=== PATIENT | female | born 1970 | race Caucasian/White ===

== ENCOUNTER 2022-03-31 12:43 | Emergency (ER) | payer MEDICAID, SELFPAY ==
[2022-03-31 13:05] VITALS: BP 129/79; PULSE 80; RESP 16; TEMP 36.8; O2SAT 99; BMI 26.1
--- NOTE | 2022-03-31 13:13 | ED.ANIMALBIT ---
HPI - Animal Bite General Time Seen by Provider: 13:13 Date Seen: 03/31/22 Chief Complaint: Animal Bite Stated Complaint: Dog bite on RT hand and hurt LT ankle Time Seen by Provider: 03/31/22 13:12 Source: patient, RN notes reviewed and old records reviewed Mode of arrival: ambulatory Limitations: no limitations History of Present Illness HPI narrative: Patient is a very pleasant 52-year-old female with a history of depression, alcohol abuse and anxiety who comes to the emergency room for evaluation of left ankle injury and dog bite. Patient notes that she was trying to pull her dogs apart and 1 turned around and bit her on the right hand. Is also bit on the leg but it did not break her skin. Unfortunately, when she was attempting to come here she fell down the stairs injuring her left ankle. She has pain on the lateral aspect but she has been able to walk. She notes that she is able to move her hand. No numbness or tingling of the fingertips. Her dogs are her own and they are vaccinated. MD complaint: animal bite and other (Left ankle injury) Onset (ago): minute(s) Animal: dog Description of animal: household pet Mechanism: bite Related Data Patient tetanus UTD: No Home Medications Medication Instructions Recorded Confirmed escitalopram oxalate 20 mg tablet 20 mg PO QDAY 12/25/21 03/31/22 hydrochlorothiazide 25 mg tablet 25 mg PO QDAY 12/25/21 03/31/22 lorazepam 0.5 mg tablet 0.5 mg PO Q6H PRN 12/25/21 03/31/22 metoprolol succinate 25 mg 75 mg PO QDAY 12/25/21 03/31/22 tablet,extended release 24 hr triamcinolone acetonide 0.1 % 1 applic topical BID 12/25/21 03/31/22 topical cream trazodone 50 mg tablet 50 mg PO QDAY PRN 03/29/22 03/31/22 Previous Rx's Medication Instructions Recorded losartan 50 mg tablet 50 mg PO QDAY #60 tabs 03/29/22 Allergies Allergy/AdvReac Type Severity Reaction Status Date / Time Sulfa (Sulfonamide Allergy Severe Hives Verified 03/31/22 13:04 Antibiotics) Review of Systems Narrative: Patient notes no recent cough cold congestion. She denies nausea vomiting. She denies any numbness or tingling. PFSH PFS Medical History Depression Family History Father Alcohol abuse Hyperlipidemia High blood pressure Mother Alcohol abuse Aortic aneurysm High blood pressure Social History Smoking Status: Former smoker Do you use any of these nicotine containing products: None Second hand tobacco smoke exposure: No How often do you have a drink containing alcohol: never How often do you have six or more drinks on one occasion: Never AUDIT-C Alcohol total score: 0 Non-prescribed substance use: denies use Little interest or pleasure in doing things: nearly every day Feeling down, depressed, or hopeless: nearly every day Exam Narrative: Exam Narrative: Patient is noted to be alert and oriented. No respiratory distress. Heart with regular rate and rhythm. Lungs are clear. Examination of the right hand shows ecchymosis on the dorsal surface. She has a 1.75 cm laceration compromising the epidermis dermis partially compromising subcutaneous tissue at the dorsal lateral hand approximately just distal to the carpal bones. There are no underlying structures visualized there are no foreign bodies. Medial to this area there are a few superficial lacerations measuring less than 4 mm. There is ecchymosis starting to evolve on the proximal aspect of the dorsum of the hand. There is no active bleeding. Patient has sensation and motor distally intact. Examination of the right leg shows a lemon sized area of ecchymosis with obvious bite jung that did not compromise the skin at the upper aspect of the lower leg finally left ankle shows tenderness over the lateral malleolus as well as edema. No ecchymosis at this time. No pain with palpation over the medial ligaments or the foot itself including navicular or base of the 5th metatarsal. Const: Vital Signs, click to edit/add: Vital Signs - 24 hr 03/31/22 13:05 Temperature 98.2 F Pulse Rate [Pulse Oximeter] 80 Respiratory Rate 16 Blood Pressure [Ri ght Upper Arm] 129/79 Pulse Oximetry 99 Oxygen Delivery Me thod Room Air Documenting provider has reviewed patient's vital signs: yes Common normals: no apparent distress, oriented x3 and no limitations General appearance: cooperative, comfortable and well kempt HENMT: Common normals: head/scalp atraumatic Head and scalp: atraumatic Eye: Common normals: PERRL General eye: normal appearance of both eyes Pupil: PERRL Neck & C-Spine: Common normals: full ROM Resp: Common normals: normal respiratory effort and clear to auscultation bilaterally Auscultation: clear to auscultation bilaterally Cardio: Common normals: regular rate and regular rhythm Rate: regular rate Rhythm: regular rhythm Neuro: Common normals: oriented x3 Psych: Appearance: well kempt Course Reevaluation(s) Reevaluation #1: Patient noted to have vasovagal episode with hypotension 80 systolic blood pressure while being irrigated. Placed in Trendelenburg and has improvement of her blood pressures. She denies recent alcohol use, reason for dehydration. She does state that irrigation was uncomfortable. We will place let on the wound at this time. Vital Signs Vital signs: Initial Vital Signs Temperature 98.2 F 03/31/22 13:05 Temperature Source Temporal Artery Scan 03/31/22 13:05 Pulse Rate 80 03/31/22 13:05 Respiratory Rate 16 03/31/22 13:05 Blood Pressure 129/79 03/31/22 13:05 Blood Pressure Mean 95 03/31/22 13:05 Blood Pressure Position Sitting 03/31/22 13:05 Pulse Oximetry 99 03/31/22 13:05 Oxygen Delivery Method 03/31/22 13:05 Vital Signs Temperature 98.2 F 03/31/22 13:05 Pulse Rate 80 03/31/22 13:05 Respiratory Rate 16 03/31/22 13:05 Blood Pressure 129/79 03/31/22 13:05 Pulse Oximetry 99 03/31/22 13:05 Oxygen Delivery Method 03/31/22 13:05 Temperature 98.2 F 03/31/22 13:05 Pulse Rate 80 03/31/22 13:05 Respiratory Rate 16 03/31/22 13:05 Blood Pressure 129/79 03/31/22 13:05 Pulse Oximetry 99 03/31/22 13:05 Oxygen Delivery Method 03/31/22 13:05 MDM - Animal Bite MDM Narrative Medical decision making narrative: 1. Dog bite-patient had 3 sutures placed after irrigation of the wound and exploration. Would recommend removal of the sutures in 10 days time. Have provided a prescription for Keflex 500 mg p.o. t.i.d. x7 days to be used in the event that patient notice any redness or drainage. If she is using antibiotic would like her to follow up with her primary MD at the clinic for recheck. If she has sudden worsening symptoms with fever, redness extending up her arm or vomiting would have her return to the emergency room for further evaluation. Patient's tetanus was not up-to-date and thus she was given Adacel today. Recommend ibuprofen as needed for discomfort. 2. Left ankle injury-patient had tiny avulsion fracture. She is able to bear weight and thus we did put her in a cam walker. She is to follow-up with orthopedics for recheck in the next week. Again ibuprofen may be utilized for discomfort. Ice to area of discomfort. 3. Vasovagal reaction-during irrigation patient did have a is a vagal reaction with blood pressures dropping to the 80s. Remained alert and oriented without chest pain. She denied any reason to be dehydrated including alcohol use. She rebounded nicely with a normal blood pressure. After let was applied and anesthesia was achieved, irrigation was again resumed. 3. Disposition-patient is discharged home. [place] police were available to talk to patient. Fortunately this is her dog well-known and it is vaccinated. Medical Records Attestation: I reviewed the patient's medical records. Imaging Data Ankle x-ray: Attestation: I have reviewed the pertinent imaging results. My impression: No obvious fracture. Questionable tiny avulsion. Radiologist's impression: Tiny avulsion identified along the medial aspect of the lateral malleolus possibly indicating a tiny avulsion fracture. Soft tissue swelling overlying the lateral malleolus. Tibiotalar articulation is unremarkable. Discharge Plan Discharge Clinical Impression: Tetanus toxoid inoculation, Dog bite, Ankle injury Patient Disposition: Home, Self-Care Condition: Improved Additional Instructions: 1. Left ankle injury-there is a tiny little avulsion fracture off the ankle indicating a ligamental injury. We will place you in a cam walker for comfort. I would have you follow-up with orthopedics as you may be a candidate for physical therapy. The phone number for follow-up with orthopedics is [phone]. 2. Dog bite-sutures are to be removed in 10 days at your clinic. Monitor for signs and symptoms of infection and should you start noticing any redness or drainage that looks like pus start antibiotic immediately then follow-up at the clinic at your earliest convenience. If however you have redness going up your arm, fever, vomiting return to the emergency room. You may wash hands and shower but do not soak hands such as doing dishes or taking a bath. 3. Ice to areas of discomfort. Ibuprofen as needed for pain Prescriptions: No Action escitalopram oxalate 20 mg tablet 20 mg PO QDAY hydrochlorothiazide 25 mg tablet 25 mg PO QDAY lorazepam 0.5 mg tablet 0.5 mg PO Q6H PRN metoprolol succinate 25 mg tablet extended release 24 hr 75 mg PO QDAY triamcinolone acetonide 0.1 % cream 1 applic topical BID trazodone 50 mg tablet 50 mg PO QDAY PRN losartan 50 mg tablet 50 mg PO QDAY Qty: 60 0RF Follow Up/Referrals: Delfina V[employer] [Primary Care Provider] - Stand Alone Forms: [facility] Info Instructions Procedures Laceration Laceration 1: Pre procedure diagnosis: Hand laceration Post procedure diagnosis: Laceration repair Site: hand Size (cm): 1.75 Description: irregular Depth: simple, single layer Local Anesthetic: other anesthetic (Let) Pre-repair: wound explored, irrigated extensively and deep structures intact Skin layer closed with: nylon Size (cm): 5-0 Number of sutures: 3 Technique: simple, interrupted Conclusion: patient tolerated procedure
--- NOTE | 2022-03-31 13:18 | CRLHL7_ITS ---
For Patients: As a result of the Cures Act, medical imaging exams and procedure reports are released immediately into your electronic medical record. You may view this report before your referring provider. If you have questions, please contact your health care provider. INDICATION: Inversion injury left ankle. COMPARISON: None. TECHNIQUE: Three view study left ankle. FINDINGS: Tiny avulsion identified along the medial aspect of the lateral malleolus possibly indicating a tiny avulsion fracture. Soft tissue swelling overlying the lateral malleolus. Tibiotalar articulation is unremarkable. Dictated by Aftab Portillo MD @ 03/31/2022 2:29:52 PM (Electronically Signed)
--- NOTE | 2022-03-31 13:30 | ED.NURSE ---
[facility] contacted re: dog bite.
--- OUTSIDE RECORDS SUMMARY | 2022-03-31 13:30 | XMS_ITS | Encounter Summary ---
:1970 Author Organization [facility] Address [address] [place] [address] Care Team Providers Name Role Phone None Reported, Pcp Primary Care Provider Unavailable Reason for Visit Reason Comments Alcohol Problem Pt presents with suspected a lcohol intoxication. Daughter states pt binge drinks for a week or s o at a time and then goes through withdrawals. Pt denies havin g seizures when she withdrawals. Would like to go to detox. Denies suicidal/homicidal ideations. Encounter Details Date Type Department Care Team Description 09/04/[address] [facility] Anny Broussard D.O. [address] [place] [address] Abuse Alcohol (Primary System [place] Anny Zhang M.D. [address] [place] [address] Dx) Emergency Department [address] [place] [address] Social History Tobacco Use Types Packs/Day Years Used Date Smoking Tobacco: Former Smokeless Tobacco: Never Alcohol Use Standard Drinks/Week Comments Yes 0 (1 standard drink = 0.6 oz pure alcoho l) Binge drinking, 375ml per day Alcohol Habits Answer Date Recorded How often do you have a drink containing Not asked alcohol? How many drinks containing alcohol do you Not asked have on a typical day when you are drinking? How often do you have six or more drinks Not asked on one occasion? Comment: Binge drinking, 375ml per day 09/04/2021 Sex Assigned at Date Recorded Not on file documented as of this encounter Last Filed Vital Signs Vital Sign Reading Time Taken Comments Blood Pressure 133/87 09/04/2021 6:00 PM ELECTRON BEAM PHOTO MASK TECHNICIAN Pulse 100 09/04/2021 7:00 PM ELECTRON BEAM PHOTO MASK TECHNICIAN Temperature 36.9 ??C (98.4 ??F) 09/04/2021 4:19 PM ELECTRON BEAM PHOTO MASK TECHNICIAN Respiratory Rate 19 09/04/2021 7:00 PM ELECTRON BEAM PHOTO MASK TECHNICIAN Oxygen Saturation 96% 09/04/2021 7:00 PM ELECTRON BEAM PHOTO MASK TECHNICIAN Inhaled Oxygen Concentration - - Weight 70.3 kg (155 lb) 09/04/2021 4:18 PM ELECTRON BEAM PHOTO MASK TECHNICIAN Height - - Body Mass Index - - documented in this encounter Discharge Instructions Discharge InstructionsAnny Zhang M.D. - 09/04/2021 7:15 PM ELECTRON BEAM PHOTO MASK TECHNICIAN Please go directly to detox TRON BEAM PHOTO MASK TECHNICIAN AttachmentsThe following attachments cannot be sent through Care Everywhere. Alcohol Abuse and Dependence Information Adult (Belarusian)documented in this encounter Medications at Time of Discharge Medication Sig Dispensed Refills Start Date End Date hydroCHLOROthiazide Take 50 mg by 0 12/22/2020 (HYDRODIURIL) 50 mg tablet mouth. LORazepam (ATIVAN) 0.5 mg Take 0.5 mg by 0 2019 tablet mouth. losartan (COZAAR) 100 mg Take 100 mg by 0 021 tablet mouth. metoprolol succinate Take 75 mg by 0 12/22/2020 (TOPROL-XL) 25 mg 24 hr tablet mouth. potassium chloride (KLOR-CON) Take 20 mEq by 0 20 mEq packet mouth. triamcinolone (KENALOG) 0.1 % Apply small dab 0 0 12/22/2020 cream behind ear and other areas of rash twice daily as needed documented as of this encounter Consult Notes Addis Cowan L.I.C.S.W. - 09/04/2021 7:20 PM CSTAssociated Order(s): IP CONSULT TO CARE MANAGEMENT Progress Note - Care Coordination SUBJECTIVE Patient is a 51 year old woman who presented to the [facility] emergency department earlier today with suspected alcohol intoxication. Management Internship was consulted by Dr. Broussard to assistwith a referral to a detox center. OBJECTIVE Past Medical History: Diagnosis Date ??? Anxiety Generalized Disorder ??? Depressive Disorder Allergies Allergen Reactions ??? Sulfa (Sulfonamide Antibiotics) Hives ASSESSMENT / PLAN ASSESSMENT Management Internship had a brief interaction with the patient to explain the process of a detox referral and she was welcoming and appreciative of this support. INTERVENTIONS 1. Referral phoned/faxed to the [facility] in [place] for review. The patient was later accepted there. That agency will provide transportation to [place] today. PLAN 1. Patient will transfer to the [facility] this evening. Najma Abel 09/04/21 TRON BEAM PHOTO MASK TECHNICIAN documented in this encounter ED Notes Anny Broussard D.O. - 09/04/2021 4:29 PM CST SUBJECTIVE: CHIEF COMPLAINT/REASON FOR VISIT: Alcohol Problem (Pt presents with suspected alcohol intoxication. Daughter states pt binge drinks for a week or so at a time and then goes through withdrawals. Pt denies having seizures when she withdrawals. Would like to go to detox. Denies suicidal/homicidal ideations. ) HISTORY OF PRESENT ILLNESS: 51 y.o. female who presents to the ED for evaluation of alcohol abuse and need for detox. Patient admits she has been a longstanding drinker, typically binge drinks in that showed drink a pt of vodka aday for about a week and then go several weeks without drinking. Family states she is at the point where she know she needs detox. Last stent of sobriety was after a period of detoxication May of 2021. Patient states her last drink was around 0440 this morning. Does not feel like she is in withdrawal. Knows the symptoms of this as she has had them many times in the past and has actually sufferedfrom alcohol withdrawal seizures previously. Denies any other physical complaints. REVIEW OF SYSTEMS: Constitutional: Negative for chills and fever. HENT: Negative for congestion and rhinorrhea. Respiratory: Negative for cough and shortness of breath. Cardiovascular: Negative for chest pain. Gastrointestinal: Negative for abdominal pain, nausea and vomiting. Musculoskeletal: Negative for extremity pain. Neurological: Negative for tingling, weakness and numbness. Psychiatric/Behavioral: Positive for substance abuse. All other systems reviewed and are negative. ALLERGIES/MEDICATIONS: Reviewed in medical record PAST MEDICAL/FAMILY/SOCIAL HISTORY: Medical History: Past Medical History: Diagnosis Date ??? Anxiety Generalized Disorder ??? Depressive Disorder Alcoholism Surgical History: Denies Family History: Reviewed in chart Social History: Social History Socioeconomic History ??? Marital status: Single Tobacco Use ??? Smoking status: Former Smoker ??? Smokeless tobacco: Never Used Vaping Use ??? Vaping Use: never used Substance and Sexual Activity ??? Alcohol use: Yes Comment: Binge drinking, 375ml per day ??? Drug use: Never ??? Sexual activity: Defer Social History Narrative Here with Daughter Social History Substance and Sexual Activity Alcohol Use Yes Comment: Binge drinking, 375ml per day Social History Substance and Sexual Activity Drug Use Never OBJECTIVE: INITIAL VITAL SIGNS: Initial Vitals Temperature Pulse Rate Heart Rate Resp Rate Blood Pressure SpO2 09/04/21 1619 09/04/21 1619 09/04/21 1625 09/04/21 1619 09/04/21 1615 09/04/21 1619 36.9 ??C (!) 118 101 18 (!) 169/111 96 % Pain Score 09/04/21 1703 0 - No pain PHYSICAL EXAMINATION: Constitutional: Nursing note and vitals reviewed. She is cooperative. No distress. HENT: Head: Normocephalic and atraumatic. Nose: Nose normal. Mouth/Throat: Oropharynx is clear and moist. Mucous membranes are moist. Eyes: EOM are normal. Pupils are equal, round, and reactive to light. Cardiovascular: Regular rhythm and normal heart sounds. Tachycardia (in 110s) present. Pulses are palpable. Capillary refill: takes less than 3 seconds, Edema: no edema noted Pulmonary/Chest: Effort normal and breath sounds normal. No respiratory distress. Abdominal: Soft. exhibits no distension. There is no abdominal tenderness. There is no rebound and no guarding. Musculoskeletal: General: No deformity. Normal range of motion. Cervical back: Normal range of motion. Neurological: Alert and oriented to person, place, and time. No tremor or tongue fasciculations Skin: Skin is warm, dry and normal color. Psychiatric: She has a normal mood and affect. Speech pattern is normal and behavior is normal. Tearful. She expresses no homicidal and no suicidal ideation. @SCORING[employer]@ ED COURSE: Final Diagnoses: as of 09/04/211810 Abuse Alcohol INTERVENTIONS: Medications NaCl 0.9 % bolus 1,000 mL (1,000 mL intravenous New Bag 09/04/21 173) LABS: Labs Reviewed CBC WITH DIFFERENTIAL, B - Abnormal Result Value Hemoglobin 12.9 Hematocrit 37.3 Erythrocytes 3.88 (*) MCV 96.1 RBC Distrib Width 14.6 Platelet Count 203 Leukocytes 3.5 Neutrophils 1.86 Lymphocytes 1.17 Monocytes 0.36 Eosinophils 0.04 Basophils 0.04 BASIC METABOLIC PANEL, S/P - Abnormal Potassium, P 3.5 (*) Sodium, P 141 Chloride, P 100 Bicarbonate, P 26 Anion Gap, P 15 BUN (Blood Urea Nitrogen), P 9 Creatinine, P 0.64 eGFR-Black/ >90 eGFR Non-Black/ >90 Calcium, Total, P 9.3 Glucose, P 119 HEPATIC FUNCTION PANEL, S - Abnormal Bilirubin, Total, P 0.6 Bilirubin, Direct, P <0.2 Aspartate Aminotransferase (AST), P 52 (*) Alanine Aminotransferase (ALT), P 83 (*) Alkaline Phosphatase, P 68 Albumin, P 4.8 Protein, Total, P 7.3 LIPASE, S/P Lipase, P 30 ASSESSMENT AND PLAN: 51 y.o. female who presents to the ED for evaluation of alcohol abuse and need for detox. Labs reassuring without acute abnormalities. HR improved with IVF here. No signs or symptoms of withdrawal currently. SW and I have discussed treatment plan and will attempt to find inpatient detox for patient and thus patient placed on a hold. Transfer of patient's care pending detox placement to [facility] ED attending Dr. Zhang. DIAGNOSIS: Final diagnoses: [F10.10] Abuse Alcohol Anny Broussard D.O. 09/04/211811 TRON BEAM PHOTO MASK TECHNICIAN documented in this encounter Plan of Treatment Not on filedocumented as of this encounter Procedures Procedure Name Priority Date/Time Associated Diagnosis Comme nts HEPATIC FUNCTION STAT 09/04/2021 5:27 PM Resul ts for this PANEL, S ELECTRON BEAM PHOTO MASK TECHNICIAN procedure are i n the results section. CBC WITH STAT 09/04/2021 5:27 PM Results f or this DIFFERENTIAL, B ELECTRON BEAM PHOTO MASK TECHNICIAN procedure ar e in the results section. LIPASE, S/P STAT 09/04/2021 5:27 PM Results f or this ELECTRON BEAM PHOTO MASK TECHNICIAN procedure are i n the results section. BASIC METABOLIC STAT 09/04/2021 5:27 PM Result s for this PANEL, S/P ELECTRON BEAM PHOTO MASK TECHNICIAN procedure are i n the results section. documented in this encounter Results Lipase (09/04/2021 5:27 PM ELECTRON BEAM PHOTO MASK TECHNICIAN) athologist Signature Lipase, P 30 13 - 60 U/L 09/04/2021 5:49 MKTO PM ELECTRON BEAM PHOTO MASK TECHNICIAN Specimen Anatomical Collection Method Collection Time Receive d Time (Source) Location / / Volume Laterality Blood (Blood, 09/04/2021 5:27 PM 09/05/19 5:29 Venous) ELECTRON BEAM PHOTO MASK TECHNICIAN PM ELECTRON BEAM PHOTO MASK TECHNICIAN Anny Broussard D.O. LAB BLOOD ADD-ON Performing Organization Address City/State/ZIP Code Phon e Number [facility]- [address] [place] [id number] [place] [address] System [address] (ABNORMAL) Hepatic Function Panel (09/04/2021 5:27 PM ELECTRON BEAM PHOTO MASK TECHNICIAN) Patholo gist Method Time Signature Bilirubin, Total, P 0.6 <=1.2 09/04/2021 MK[facility] mg/dL 5:49 PM ELECTRON BEAM PHOTO MASK TECHNICIAN Bilirubin, Direct, P <0.2 0.0 - 0.3 09/04/2021 MK[facility] mg/dL 5:49 PM ELECTRON BEAM PHOTO MASK TECHNICIAN Aspartate 52 (H) 8 - 43 09/04/2021 MKTO Aminotransferase U/L 5:49 PM ELECTRON BEAM PHOTO MASK TECHNICIAN (AST), P Alanine 83 (H) 7 - 45 09/04/2021 [facility] Aminotransferase U/L 5:49 PM ELECTRON BEAM PHOTO MASK TECHNICIAN (ALT), P Alkaline 68 35 - 104 09/04/2021 MKTO Phosphatase, P U/L 5:49 PM ELECTRON BEAM PHOTO MASK TECHNICIAN Albumin, P 4.8 3.5 - 5.0 09/04/2021 MKTO g/dL 5:49 PM ELECTRON BEAM PHOTO MASK TECHNICIAN Protein, Total, P 7.3 6.3 - 7.9 09/04/2021 MKTO g/dL 5:49 PM ELECTRON BEAM PHOTO MASK TECHNICIAN Specimen Anatomical Collection Method Collection Time Receive d Time (Source) Location / / Volume Laterality Blood (Blood, 09/04/2021 5:27 PM 09/05/19 5:29 Venous) ELECTRON BEAM PHOTO MASK TECHNICIAN PM ELECTRON BEAM PHOTO MASK TECHNICIAN Anny Broussard D.O. LAB BLOOD ADD-ON Performing Organization Address City/State/ZIP Code Phon e Number [facility]- [address] [place] [id number] [place] [address] System in [place] [address] [facility] (ABNORMAL) Basic Metabolic Panel (09/04/2021 5:27 PM ELECTRON BEAM PHOTO MASK TECHNICIAN) P athologist Signature Potassium, P 3.5 (L) 3.6 - 5.2 09/04/2021 MK[place] mmol/L 5:49 PM ELECTRON BEAM PHOTO MASK TECHNICIAN Sodium, P 141 135 - 145 09/04/2021 MK[facility] mmol/L 5:49 PM ELECTRON BEAM PHOTO MASK TECHNICIAN Chloride, P 100 98 - 107 09/04/2021 MKTO mmol/L 5:49 PM ELECTRON BEAM PHOTO MASK TECHNICIAN Bicarbonate, P 26 22 - 29 09/04/2021 MKTO mmol/L 5:49 PM ELECTRON BEAM PHOTO MASK TECHNICIAN Anion Gap, P 15 7 - 15 09/04/2021 MKTO 5:49 PM ELECTRON BEAM PHOTO MASK TECHNICIAN BUN (Blood Urea 9 6 - 21 09/04/2021 MKTO Nitrogen), P mg/dL 5:49 PM ELECTRON BEAM PHOTO MASK TECHNICIAN Creatinine 0.64 0.59 - 09/04/2021 MKTO 1.04 mg/dL 5:49 PM ELECTRON BEAM PHOTO MASK TECHNICIAN eGFR-Black/Afri >90 >=60 09/04/2021 MK[facility] can [place] mL/min/BSA 5:49 PM ELECTRON BEAM PHOTO MASK TECHNICIAN Comment: ----ADDITIONAL INFORMATION---- Estimated GFR calculated using the 2009 CKD_EPI creatinine equation. eGFR Non-Black/ >90 >=60 mL/min/BSA 09/04/2021 5:49 PM ELECTRON BEAM PHOTO MASK TECHNICIAN MKTO Comment: ----ADDITIONAL INFORMATION---- Estimated GFR calculated using the 2009 CKD_EPI creatinine equation. Calcium, Total, P 9.3 8.6 - 10.0 mg/dL 09/04/2021 5:49 PM ELECTRON BEAM PHOTO MASK TECHNICIAN MKTO Glucose, P 119 70 - 140 mg/dL 09/04/2021 5:49 PM ELECTRON BEAM PHOTO MASK TECHNICIAN M KTO Specimen Anatomical Collection Method Collection Time Receive d Time (Source) Location / / Volume Laterality Blood (Blood, 09/04/2021 5:27 PM 03/08/20 22 5:29 Venous) ELECTRON BEAM PHOTO MASK TECHNICIAN PM ELECTRON BEAM PHOTO MASK TECHNICIAN Anny Broussard D.O. LAB BLOOD ADD-ON Performing Organization Address City/State/ZIP Code Phon e Number [facility]- [address] [place] [address] [place] [address] System in [place] [address] [place] [address] (ABNORMAL) CBC with Differential, Blood (09/04/2021 5:27 PM ELECTRON BEAM PHOTO MASK TECHNICIAN) [facility] Method Time Signature Hemoglobin 12.9 11.6 - 09/04/2021 MKTO 15.0 g/dL 5:35 PM ELECTRON BEAM PHOTO MASK TECHNICIAN Hematocrit 37.3 35.5 - 09/04/2021 MKTO 44.9 % 5:35 PM ELECTRON BEAM PHOTO MASK TECHNICIAN Erythrocytes 3.88 (L) 3.92 - 09/04/2021 MKTO 5.13 5:35 PM ELECTRON BEAM PHOTO MASK TECHNICIAN x10(12)/L MCV 96.1 78.2 - 09/04/2021 MKTO 97.9 fL 5:35 PM ELECTRON BEAM PHOTO MASK TECHNICIAN RBC Distrib Width 14.6 12.2 - 09/04/2021 MKTO 16.1 % 5:35 PM ELECTRON BEAM PHOTO MASK TECHNICIAN Platelet Count 203 157 - 371 09/04/2021 MKTO x10(9)/L 5:35 PM ELECTRON BEAM PHOTO MASK TECHNICIAN Leukocytes 3.5 3.4 - 9.6 09/04/2021 MKTO x10(9)/L 5:35 PM ELECTRON BEAM PHOTO MASK TECHNICIAN Neutrophils 1.86 1.56 - 09/04/2021 MKTO 6.45 5:35 PM ELECTRON BEAM PHOTO MASK TECHNICIAN x10(9)/L Lymphocytes 1.17 0.95 - 09/04/2021 MKTO 3.07 5:35 PM ELECTRON BEAM PHOTO MASK TECHNICIAN x10(9)/L Monocytes 0.36 0.26 - 09/04/2021 MKTO 0.81 5:35 PM ELECTRON BEAM PHOTO MASK TECHNICIAN x10(9)/L Eosinophils 0.04 0.03 - 09/04/2021 MKTO 0.48 5:35 PM ELECTRON BEAM PHOTO MASK TECHNICIAN x10(9)/L Basophils 0.04 0.01 - 09/04/2021 MKTO 0.08 5:35 PM ELECTRON BEAM PHOTO MASK TECHNICIAN x10(9)/L Specimen Anatomical Collection Method Collection Time Receive d Time (Source) Location / / Volume Laterality Blood (Blood, 09/04/2021 5:27 PM 09/05/19 5:29 Venous) ELECTRON BEAM PHOTO MASK TECHNICIAN PM ELECTRON BEAM PHOTO MASK TECHNICIAN Anny Broussard D.O. LAB BLOOD ADD-ON Performing Organization Address City/State/ZIP Code Phon e Number [facility]- [address] [place] [phone] [place] [address] System in [place] [address] [facility] documented in this encounter Visit Diagnoses Diagnosis Abuse Alcohol - Primary documented in this encounter Administered Medications Inactive Administered Medications - up to 3 most recent administrations Medication Order MAR Action Action Date Dose Rate Site NaCl 0.9 % bolus 1,000 mL New Bag 09/04/2021 5:39 PM ELECTRON BEAM PHOTO MASK TECHNICIAN 1,000 mL 1000 mL/hr 1,000 mL, intravenous, at 1,000 mL/hr, Administer over 1 Hours, Once, On Fri09/04/21 at 1721, For 1 dose documented in this encounter Active and Recently Administered Medications Times are shown in ELECTRON BEAM PHOTO MASK TECHNICIAN. Scheduled Medication Order 09/02/2021 09/03/2021 09/04/2021 NaCl 0.9 % bolus 1,000 mL (COMPLETED) 1739 (New Bag - Provider: Charla Kyle)1823 (Stopped - Provider: Braulio Molina R.N.) 1,000 mL, intravenous, at 1,000 mL/hr, A dminister over 1 Hours, Once, On Fri09/04/21 at 1721, For 1 dose documented in this encounter Care Teams Hearing Aid Technician Relationship Specialty Start Date End Date None Reported, Pcp PCP - General Family Medicine 09/04/21 documented as of this encounter
--- OUTSIDE RECORDS SUMMARY | 2022-03-31 13:30 | XMS_ITS | Clinical Summary ---
:1970 Author Organization [facility] [place] [address] Care Team Providers Name Role Phone Elena Hart MD Primary Care Provider Unavailabl e Allergies Active Allergy Reactions Severity Noted Date Comments Sulfa (Sulfonamide Antibiotics) Hives 4 Medications Medication Sig Dispensed Refills Start Date End Date Status LORazepam (ATIVAN) 0.5 mg Take 1 tablet 30 tablet. 0 0 Active tabIndications: Anxiety by mouth every 6 hours if needed for Anxiety. to improve sleep hydroCHLOROthiazide 50 mg Take 1 Tablet 90 Tablet 3 12/22/2020 Active tabletIndications: (50 mg) by Essential hypertension mouth once daily. losartan (COZAAR) 100 mg Take 1 Tablet 90 tablet. 3 12/22/2020 Active tabletIndications: (100 mg) by Essential hypertension mouth once daily. metoprolol succinate Take 3 Tablets 270 tablet. 3 12/22/2020 Active (TOPROL XL) 25 mg (75 mg) by Sustained-Release mouth once tabletIndications: daily. To Essential hypertension lower blood pressure and protect the heart triamcinolone Apply small 15 g 12/22/2020 Act hanane (ARISTOCORT; KENALOG) 0.1 dab behind ear % creamIndications: and other Chronic eczema areas of rash twice daily as needed potassium chloride Mix 1 Packet 90 Packet 3 12/25/2020 Active (K-ZIA) 20 mEq (20 mEq) in packetIndications: liquid then Hypokalemia take by mouth once daily with a meal. Active Problems Problem Noted Date Lipoma of right forearm 02/08/2017 Elevated LFTs 05/01/2015 Vaginal discharge 03/24/2014 Menometrorrhagia 03/09/2014 Uterine fibroid 01/14/2014 H/O LEEP 06/30/2001 Overview: 2001-LEEP (no records) Plan: await HPV ALEN III (cervical intraepithelial neoplasia grade III) with severe 06/30/2001 dysplasia Overview: 2001-LEEP (no records) 03/2018 NIL/HPV negative Plan: Pap/HPV due 03/2021 HTN (hypertension) Immunizations Name Administration Dates Next Due COVID-19 vaccine ([employer] 30mcg/0.3mL) PF, 1, 10/13/2020 MDV Td (Age >=7 Years) 12/03/2004 Tdap 12/06/2011 Family History Medical History Relation Name Comments Hyperlipidemia Father Hypertension Father Hypertension Mother Other Mother aortic aneurysm Cancer-breast No Family History Cancer-colon No Family History Cancer-ovarian No Family History Cancer-prostate No Family History Relation Name Status Comments Father Mother Social History Tobacco Use Types Packs/Day Years Used Date Former Smoker Cigarettes 0.25 10 06/30/1986 - 0 06/30/2002 Smokeless Tobacco: Never Used Tobacco Cessation: Counseling Given: Yes Alcohol Use Standard Drinks/Week Comments Not Currently 7 (1 standard drink = 0.6 oz pure alcoho l) 1 glass per wine daily Alcohol Habits Answer Date Recorded How often do you have a drink containing alcohol? 2-3 times a week 08/04/2020 How many drinks containing alcohol do you have on a 1 or 2 08/04/2020 typical day when you are drinking? How often do you have six or more drinks on one Not asked occasion? Comment: Not asked Sex Assigned at Date Recorded Not on file Obstetrics History Para Term AB IAB SAB Ectopic Multiple Living Live Births 2 2 2 2 Date Outcome GA Total Labor/2nd/3rd Weight Sex Delivery Anes PTL Beryl A 1 A5 Name Clin Labor Term Vag Term Vag Last Filed Vital Signs Vital Sign Reading Time Taken Comments Blood Pressure 106/78 12/22/2020 2:18 PM CDT Pulse 72 12/22/2020 2:18 PM CDT Temperature 36.4 ??C (97.6 ??F) 08/04/2020 3:52 PM TELEGRAPH PRINTER MECHANIC Respiratory Rate 12 08/04/2020 6:43 PM TELEGRAPH PRINTER MECHANIC Oxygen Saturation 99% 08/04/2020 6:43 PM TELEGRAPH PRINTER MECHANIC Inhaled Oxygen Concentration - - Weight 74.3 kg (163 lb 14.4 oz) 12/22/2020 2:18 PM CDT Height 162.3 cm (5' 3.9) 12/22/2020 2:18 PM CDT Body Mass Index 28.22 12/22/2020 2:18 PM CDT Plan of Treatment Health Maintenance Due Date Last Done Comments Fecal testing non-DNA 2014 (FIT,FOBT,iFOBT) for age 45-75 Zoster (shingles) series for age 0903/08/2019 50+ (1 of 2) Mammogram for age 45-75 07/08/2020 07/08/2019, 05/04/2018 Pap test for age 21-65 04/03/2021 04/03/2018, 04/03/2018, 09/29/2011 COVID-19 vaccine series (3 - 04/05/2021 11/03/2020, 021 Booster for Pfizer series) Tetanus booster 12/05/2021 12/06/2011, 12/03/2004 BMI (ht and wt on same day) for 12/22/2021 12/22/2020, 05/30, age 18+ 06/11/2019, Additional history exists Depression screening for age 12+ 12/22/2021 12/22/2020, , 06/11/2019, Additional history exists Influenza for age 50-64 02/28/2022 Lipids for age 45-75 12/22/2025 12/22/2020, 06/11/2019, 04/03/2018, Additional history exists Tdap Completed 12/06/2011 Hepatitis C screening for age Completed 06/11/2019 18-79 Results Not on filefrom Last 3 Months Insurance Payer Benefit Plan / Subscriber ID Effective Dates Phone Addre ss Type Group JUDIT S[place]IN [place] [id number] 2020-Present [address] [place] [address] Beatriz Verdugo Personal/Family Self 1970 [id number] ([address]) [facility] [place] [id number] Advance Directives Latest Code Status on File Code Status Date Activated Date Inactivated Comments Full Code 06/10/2014 8:09 AM 06/10/2014 2:25 PM Care Teams Billet Cutter Relationship Specialty Start Date End Date Elena Hart MD PCP - General Family Practice 09/08/13
--- OUTSIDE RECORDS SUMMARY | 2022-03-31 13:30 | XMS_ITS | Clinical Summary ---
:1970 Author Organization [facility] Address [address] [place] [id number] Care Team Providers Name Role Phone Unavailable Primary Care Provider Unavailable Allergies Active Allergy Reactions Severity Noted Date Comments Sulfa Drugs Hives 09/08/2013 Medications Medication Sig Dispensed Refills Start Date End Date Status potassium chloride Take 20 mEq 0 12/25/2020 Active (KLOR-CON) 20 MEQ packet by mouth hydrochlorothiazide Take 50 mg by 0 09/05/2021 Active (HYDRODIURIL) 50 MG tablet mouth daily losartan (COZAAR) 100 MG Take 100 mg 0 09/05/2021 Active tablet by mouth daily metoprolol succinate ER Take 75 mg by 0 12/22/2020 Active (TOPROL-XL) 25 MG 24 hr mouth tablet Encounters Date Type Specialty Care Team Description 03/31/2022 Travel from Last 3 Months Family History Medical History Relation Comments Substance Abuse Brother Substance Abuse Father Substance Abuse Mother Relation Status Comments Brother Alive Daughter Alive Father Alive Mother Alive Son Alive Social History Tobacco Use Types Packs/Day Years Used Date Never Smoker Smokeless Tobacco: Never Used Sex Assigned at Date Recorded Not on file COVID-19 Exposure Response Date Recorded In the last 10 days, have you been in contact with No / Unsu re 03/31/2022 12:17 PM CDT someone who was confirmed or suspected to have Coronavirus/COVID-19? Last Filed Vital Signs Vital Sign Reading Time Taken Comments Blood Pressure - - Pulse - - Temperature - - Respiratory Rate - - Oxygen Saturation - - Inhaled Oxygen Concentration - - Weight 70.3 kg (155 lb) 09/10/2021 8:05 AM CDT Height 165.1 cm (5' 5) 09/10/2021 8:05 AM CDT Body Mass Index 25.79 09/10/2021 8:05 AM CDT Plan of Treatment Health Maintenance Due Date Last Done Comments ADVANCE CARE PLANNING 1970 ANNUAL REVIEW OF HM ORDERS 1969 CT COLONOGRAPHY 1969 FIT-DNA (Cologuard) 1969 FIT 1969 FLEX SIG 1969 MAMMO SCREENING 1969 PREVENTIVE CARE VISIT 1969 COLONOSCOPY 1979 COLORECTAL CANCER SCREENING 1979 HIV SCREENING 1984 HEPATITIS C SCREENING 1987 PAP 1990 LIPID 2014 ZOSTER IMMUNIZATION (1 of 2) 2019 COVID-19 Vaccine (3 - Booster 12/29/2020 11/03/2020, for Pfizer series) 10/13/2020 DTAP/TDAP/TD IMMUNIZATION (2 12/05/2021 12/06/2011, - Td or Tdap) 12/03/2004 INFLUENZA VACCINE (#1) 2022 PHQ-2 (once per calendar Completed 09/10/2021, year) 09/10/2021 HEPATITIS B IMMUNIZATION Aged Out No long er eligible based on patient's age to complete this to pic IPV IMMUNIZATION Aged Out No longer eligi ble based on patient's age to complete this to pic MENINGITIS IMMUNIZATION Aged Out No longe r eligible based on patient's age to complete this to pic Pneumococcal Vaccine: Aged Out No longer eligible based Pediatrics (0 to 5 Years) and on patient's age to At-Risk Patients (6 to 64 comple te this topic Years) Insurance Payer Benefit Plan / Subscriber ID Effective Dates Phone Addre ss Type Group [facility] [id number] 2020-Present [phone] [address] [place] [address]
--- OUTSIDE RECORDS SUMMARY | 2022-03-31 13:30 | XMS_ITS | Encounter Summary ---
:1970 Author Organization [facility] Address [address] [place] [id number] Care Team Providers Name Role Phone Unavailable Primary Care Provider Unavailable Encounter Details Date Type Department Care Team Description 03/31/2022 Travel Social History Tobacco Use Types Packs/Day Years Used Date Never Smoker Smokeless Tobacco: Never Used Sex Assigned at Date Recorded Not on file COVID-19 Exposure Response Date Recorded In the last 10 days, have you been in contact with No / Unsu re 03/31/2022 12:17 PM CDT someone who was confirmed or suspected to have Coronavirus/COVID-19? documented as of this encounter Plan of Treatment Not on filedocumented as of this encounter Visit Diagnoses Not on filedocumented in this encounter Additional Health Concerns Assessment Noted Time PHQ-9 Depression Total Score: 19 09/10/2021 8:12 AM CD T documented as of this encounter
--- OUTSIDE RECORDS SUMMARY | 2022-03-31 13:30 | XMS_ITS | Clinical Summary ---
:1970 Author Organization [facility] Address [address] [place] [address] Care Team Providers Name Role Phone Elsewhere, Pcp Primary Care Provider Unavailable Source Comments Patient records contain information from all sites at [facility]. For routine questions regarding patient records, call [phone] during business hours, M-F 8:00 AM - 5:00 PM Central Time. Record requests for emergency care only can be directed to [phone] at any time.[facility] Allergies Active Allergy Reactions Severity Noted Date Comments Sulfa (Sulfonamide Antibiotics) Hives 2 Medications Medication Sig Dispensed Refills Start Date End Date Status hydroCHLOROthiazide Take 50 mg by 0 12/22/2020 Active (HYDRODIURIL) 50 mg tablet mouth. LORazepam (ATIVAN) 0.5 mg Take 0.5 mg 0 06/02/2020 Active tablet by mouth. losartan (COZAAR) 100 mg Take 100 mg 0 12/22/2020 Active tablet by mouth. metoprolol succinate Take 75 mg by 0 12/22/2020 Active (TOPROL-XL) 25 mg 24 hr mouth. tablet potassium chloride Take 20 mEq 0 12/25/2020 Active (KLOR-CON) 20 mEq packet by mouth. triamcinolone (KENALOG) 0.1 Apply small 0 12/22/2020 Active % cream dab behind ear and other areas of rash twice daily as needed Active Problems No known active problems Social History Tobacco Use Types Packs/Day Years [...] Assigned at Date Recorded Not on file Last Filed Vital Signs Vital Sign Reading Time Taken Comments Blood Pressure 133/87 09/04/2021 6:00 PM ELIGIBILITY SUPERVISOR Pulse 100 09/04/2021 7:00 PM ELIGIBILITY SUPERVISOR Temperature 36.9 ??C (98.4 ??F) 09/04/2021 4:19 PM ELIGIBILITY SUPERVISOR Respiratory Rate 19 09/04/2021 7:00 PM ELIGIBILITY SUPERVISOR Oxygen Saturation 96% 09/04/2021 7:00 PM ELIGIBILITY SUPERVISOR Inhaled Oxygen Concentration - - Weight 70.3 kg (155 lb) 09/04/2021 4:18 PM ELIGIBILITY SUPERVISOR Height - - Body Mass Index - - Plan of Treatment Health Maintenance Due Date Last Done Comments CT Colonography 1970 Cervical Cancer Screening 1970 Cologuard 1970 Colonoscopy 1969 Colorectal Cancer Screening 1969 FIT 1969 HIV Screening 1969 Hepatitis B Vaccines (1 of 1969 3 - 3-dose series) Hepatitis C Screening 1969 Mammogram 1969 Zoster Vaccines (1 of 2) 2019 COVID-19 Vaccine (3 - 12/29/2020 11/03/2020, 10/13/2020 Booster for Pfizer series) Depression Screening 06/30/2021 (Annual PHQ-2) DTaP,Tdap,and Td Vaccines 12/05/2021 12/06/2011, 12/03/2004 (2 - Td or Tdap) Influenza Vaccine (#1) 2022 Creatinine Level 09/04/2022 09/04/2021, 12/22/2020, 08/04/2020, Additional history exists Potassium Level 09/04/2022 09/04/2021, 12/22/2020, 08/04/2020, Additional history exists Sodium Level 09/04/2022 09/04/2021, 12/22/2020, 08/04/2020, Additional history exists Fasting Glucose for 09/04/2024 09/04/2021, 12/22/2020, Diabetes Screening 08/04/2020, Additional history exists Lipid (Cholesterol) 12/22/2025 12/22/2020, 06/11/2019, Screening 04/03/2018 Pneumococcal vaccine (0-64 Aged Out No lo nger eligible years) based on patient 's age to complete this topic Insurance Payer Benefit Plan Subscriber ID Effective Dates Phone Address Type / Group [facility] [id number] 2021-Dana [phone] [address] Medicaid HMO t [address] [place] [address] Care Teams Cosmetic Counselor Relationship Specialty Start Date End Date Elsewhere, Pcp PCP - General 10/21/21
[2022-03-31] MEDS: TETANUS/DIPHTH/PERTUSSIS 0.5 ML SYRINGE IM (13:41)
== END 2022-03-31 15:37 | disposition home or self-care (01) ==
PROVIDERS: Emergency Provider Family Medicine; PCP Nurse Practitioner Family
DX: S61.451A Open bite of right hand, initial encounter (principal); W54.0XXA Bitten by dog, initial encounter; Y93.9 Activity, unspecified; Y92.019 Unspecified place in single-family (private) house as the place of occurrence of the external cause; Y99.8 Other external cause status; S99.912A Unspecified injury of left ankle, initial encounter; W10.8XXA Fall (on) (from) other stairs and steps, initial encounter; Y93.89 Activity, other specified
CPT/HCPCS: 12001; 73610; 90471; 90715; 99283; 99284

== ENCOUNTER 2022-06-28 21:17 | Emergency (ER) | payer MEDICAID, SELFPAY ==
[2022-06-28 21:24] VITALS: BP 168/121; PULSE 112; RESP 16; TEMP 36.2; O2SAT 97; BMI 25.7
--- NOTE | 2022-06-28 21:39 | ED.GENADULT ---
HPI - General Adult General Chief complaint: Animal Bite Stated complaint: Dog Bites, Right hand, Left Leg Time Seen by Provider: 06/28/22 21:24 Source: patient Mode of arrival: ambulatory Limitations: no limitations History of Present Illness HPI narrative: 52-year-old female coming in today after being bitten by her own dogs. She states that 1 dog is up-to-date on vaccinations on the other 1 is not. She is breaking up a fight between them and the dogs bit her left lower extremity and right middle finger. She denies other injury. Her tetanus shot was just updated couple of months ago. Related Data Home Medications Medication Instructions Recorded Confirmed trazodone 50 mg tablet 50 mg PO QDAY PRN 03/29/22 06/28/22 Previous Rx's Medication Instructions Recorded hydrochlorothiazide 25 mg tablet 25 mg PO QDAY #90 tabs 05/21/22 escitalopram oxalate 20 mg tablet 20 mg PO QDAY #90 tabs 06/20/22 lorazepam 0.5 mg tablet 0.5 mg PO Q6H PRN anxiety #60 tabs 06/20/22 losartan 50 mg tablet 50 mg PO QDAY #60 tabs 06/20/22 metoprolol succinate 25 mg 75 mg PO QDAY #90 tabs 06/20/22 tablet,extended release 24 hr triamcinolone acetonide 0.1 % 1 applic topical BID #15 grams 06/20/22 topical cream amoxicillin 875 mg-potassium 1 tab PO BID 7 days #14 tabs 06/28/22 clavulanate 125 mg tablet Allergies Allergy/AdvReac Type Severity Reaction Status Date / Time Sulfa (Sulfonamide Allergy Severe Hives Verified 03/31/22 13:04 Antibiotics) Review of Systems Status of ROS: Reports: 10 or more systems reviewed and unremarkable except as noted in History and [facility] Medical History Depression Family History Father Alcohol abuse Hyperlipidemia High blood pressure Mother Alcohol abuse Aortic aneurysm High blood pressure Social History Smoking Status: Never smoker Do you use any of these nicotine containing products: None Second hand tobacco smoke exposure: No How often do you have a drink containing alcohol: never How often do you have six or more drinks on one occasion: Never AUDIT-C Alcohol total score: 0 Non-prescribed substance use: denies use Little interest or pleasure in doing things: nearly every day Feeling down, depressed, or hopeless: nearly every day service: No Exam Narrative: Exam Narrative: Well-nourished well-developed patient, anxious. Alert and oriented x3. Answers questions appropriately. Patient speaks in full sentences without needing to catch her breath. HEENT: Normocephalic atraumatic. Pupils are equally round reactive to light. Extraocular muscles are intact. Conjunctivae are moist without any icterus noted. Extremities: Patient has 2 areas that were bitten in the left lower extremity 1 on the anterior lower tran and 1 on the lateral mid calf. She has underlying hematomas in both areas. She has a puncture wound on the lower bite area and abrasions of the upper bite area without significant lacerations present. She also has 1 puncture wound on the pad of her middle finger of the right hand. Skin: Well perfused. Const: Vital Signs, click to edit/add: Vital Signs - 24 hr 06/28/22 21:24 Temperature 97.1 F L Pulse Rate [Pulse Oximeter] 112 H Respiratory Rate 16 Blood Pressure [Le ft Upper Arm] 168/121 H Pulse Oximetry 97 Oxygen Delivery Me thod Room Air Course Course Hospital Course: I do not see anything that would benefit from suturing today. I do believe everything will heal up well by secondary intention. All wounds were cleaned in the ER today. Patient will be sent home with Augmentin. Vital Signs Vital signs: Initial Vital Signs Temperature 97.1 F L 06/28/22 21:24 Temperature Source Temporal Artery Scan 06/28/22 21:24 Pulse Rate 112 H 06/28/22 21:24 Pulse Rhythm 06/28/22 21:24 Respiratory Rate 16 06/28/22 21:24 Blood Pressure 168/121 H 06/28/22 21:24 Blood Pressure Mean 136 06/28/22 21:24 Pulse Oximetry 97 06/28/22 21:24 Oxygen Delivery Method 06/28/22 21:24 Vital Signs Temperature 97.1 F L 06/28/22 21:24 Pulse Rate 112 H 06/28/22 21:24 Respiratory Rate 16 06/28/22 21:24 Blood Pressure 168/121 H 06/28/22 21:24 Pulse Oximetry 97 06/28/22 21:24 Oxygen Delivery Method 06/28/22 21:24 Temperature 97.1 F L 06/28/22 21:24 Pulse Rate 112 H 06/28/22 21:24 Respiratory Rate 16 06/28/22 21:24 Blood Pressure 168/121 H 06/28/22 21:24 Pulse Oximetry 97 06/28/22 21:24 Oxygen Delivery Method 06/28/22 21:24 Medical Decision Making MDM Narrative Medical decision making narrative: 52-year-old female with dog bites. We discussed wound hygiene and signs/ symptoms of infection and reasons to return for follow-up. Patient was agreeable and had no other questions. Discharge Plan Discharge Clinical Impression: Dog bite Patient Disposition: Home, Self-Care Condition: Stable Additional Instructions: Take all antibiotics as prescribed. Keep wounds clean and dry. Change dressings daily. Return to the ER if you have any concerns about infection. Prescriptions: New amoxicillin-pot clavulanate 875-125 mg tablet 1 tab PO BID 7 Days Qty: 14 0RF No Action trazodone 50 mg tablet 50 mg PO QDAY PRN escitalopram oxalate 20 mg tablet 20 mg PO QDAY Qty: 90 1RF losartan 50 mg tablet 50 mg PO QDAY Qty: 60 0RF triamcinolone acetonide 0.1 % cream 1 applic topical BID Qty: 15 0RF metoprolol succinate 25 mg tablet extended release 24 hr 75 mg PO QDAY Qty: 90 1RF lorazepam 0.5 mg tablet 0.5 mg PO Q6H PRN (Reason: anxiety) Qty: 60 0RF hydrochlorothiazide 25 mg tablet 25 mg PO QDAY Qty: 90 1RF Follow Up/Referrals: Delfina Vargas TRUCK TECHNICIAN [Primary Care Provider] - Stand Alone Forms: MyHealth Info Instructions
--- NOTE | 2022-06-28 21:55 | ED.NURSE ---
Wounds cleansed with wound cleanser. Finger dressed with Bandaid. Left leg dressed with telfa and kerlix.
[2022-06-28 22:07] VITALS: BP 154/100; PULSE 98; RESP 18
--- NOTE | 2022-06-28 22:08 | ED.NURSE ---
[facility] dispatch contacted regarding dog bite. An officer will be in contact with the patient. Patient is aware that PD will be contacting her.
== END 2022-06-28 22:09 | disposition home or self-care (01) ==
PROVIDERS: Emergency Provider Family Medicine; PCP Nurse Practitioner Family
DX: S81.852A Open bite, left lower leg, initial encounter (principal); S61.252A Open bite of right middle finger without damage to nail, initial encounter; W54.0XXA Bitten by dog, initial encounter; Y93.9 Activity, unspecified; Y92.019 Unspecified place in single-family (private) house as the place of occurrence of the external cause
CPT/HCPCS: 99283